=== PATIENT | male | born 1985 | race Hispanic/Latino ===

== ENCOUNTER 2016-08-31 13:32 | Emergency (ER) | payer MEDICAID, OTHER ==
[2016-08-31 14:01] VITALS: BP 121/71; PULSE 77; RESP 20; TEMP 98; O2SAT 100
--- NOTE | 2016-08-31 14:37 | C.PDOC ---
History Of Present Illness 31 year old male presents to the emergency room for a medication refil of Neurontin and Wellbutrin. Patient notes he was in a drug program and was released with a few days of medications. Patient doesn't have a psychiatrist right now. Patient went to [facility], but was told he couldn't see a psychiatrist until next month. Patient denies any SI/HI, hallucinations, fever, or any other complaints. Time Seen by Provider: 08/31/16 14:06 Chief Complaint (Nursing): Med Refill History Per: Patient History/Exam Limitations: no limitations Onset/Duration Of Symptoms: Days (Few days) Current Symptoms Are (Timing): Still Present Severity: Mild Recent travel outside of the [place]: No Past Medical History Reviewed: Historical Data, Nursing Documentation, Vital Signs Vital Signs: Last Vital Signs Temp 98 F 08/31/16 13:58 Pulse 77 08/31/16 13:58 Resp 20 08/31/16 13:58 BP 121/71 08/31/16 13:58 Pulse Ox 100 08/31/16 15:37 - Medical History PMH: Asthma Surgical History: Hernia Repair (b/l inguinal in 1988) Family History: States: Unknown Family Hx - Social History Hx Tobacco Use: Yes Hx Alcohol Use: Yes Hx Substance Use: Yes - Immunization History Hx Tetanus Toxoid Vaccination: Yes (in the last 2 yrs) Hx Influenza Vaccination: No Hx Pneumococcal Vaccination: No Review Of Systems Except As Marked, All Systems Reviewed And Found Negative. Constitutional: Positive for: Other (Medication refill). Negative for: Fever, Chills Gastrointestinal: Negative for: Nausea, Vomiting, Diarrhea Psych: Negative for: Suicidal ideation Physical Exam - Physical Exam Appears: Non-toxic, No Acute Distress Skin: Warm, Dry, No Rash Head: Atraumatic, Normacephalic Eye(s): bilateral: Normal Inspection Nose: Normal Oral Mucosa: Moist Chest: Symmetrical Cardiovascular: Rhythm Regular Respiratory: Normal Breath Sounds, No Rales, No Rhonchi, No Wheezing Extremity: Normal ROM, No Tenderness Neurological/Psych: Oriented x3, Normal Speech, Normal Cognition Gait: Steady ED Course And Treatment O2 Sat by Pulse Oximetry: 100 Progress Note: Patient was given outpatient referrals by elevator worker and instructed to follow up as scheduled. Case idsucssed with jd Arteaga plan and treatment. Disposition - Disposition Disposition: HOME/ ROUTINE Disposition Time: 14:37 Condition: STABLE Additional Instructions: Follow up with the [facility] as scheduled. Return to ER if symptoms persist or worsen. Prescriptions: buPROPion XL [Wellbutrin] 150 mg PO DAILY #15 t24 Gabapentin [Neurontin] 300 mg PO TID #42 cap Instructions: Depression (ED) - Clinical Impression Clinical Impression: Medication refill - Scribe Statement The provider has reviewed the documentation as recorded by the Scribliam Dumont All medical record entries made by the Suriibliam were at my direction and personally dictated by me. I have reviewed the chart and agree that the record accurately reflects my personal performance of the history, physical exam, medical decision making, and the department course for this patient. I have also personally directed, reviewed, and agree with the discharge instructions and disposition.
== END 2016-08-31 15:06 | disposition home or self-care (01) ==
LOC: C.ER 13:32
DX: Z76.0 Encounter for issue of repeat prescription (principal)

== ENCOUNTER 2018-01-24 07:49 | Inpatient (IN) | payer MEDICAID, OTHER ==
[2018-01-24 08:37] LABS: BASO % 0.7 % (0.0-2.0); EOS # 0.2 K/uL (0.0-0.7); EOS % 2.6 % (0.0-4.0); HEMOGLOBIN 15.4 g/dL (12.0-18.0); LYMPH # 2.6 K/uL (1.0-4.3); LYMPH % 34.8 % (20.0-40.0); MEAN CELL VOLUME 87.6 fL (80.0-94.0); MEAN CORPUSCULAR HEMOGLOBIN 30.4 pg (27.0-31.0); MEAN CORPUSCULAR HGB CONC 34.7 g/dL (33.0-37.0); MEAN PLATELET VOLUME 7.7 fL (7.2-11.7); MONO # 0.9 K/uL (0.0-0.8); MONO % 11.7 % (0.0-10.0); NEUT # 3.7 K/uL (1.8-7.0); NEUT % 50.2 % (50.0-75.0); NRBC % 0.1 % (0.0-2.0); RBC 5.05 Mil/uL (4.40-5.90); RED CELL DISTRIBUTION WIDTH 13.5 % (11.5-14.5); WHITE BLOOD COUNT 7.4 K/uL (4.8-10.8)
[2018-01-24 08:46] LABS: SQUAMOUS EPITHIAL < 1 /hpf (0-5); URINE BILIRUBIN NEGATIVE (NEGATIVE); URINE BLOOD NEGATIVE (NEGATIVE); URINE CLARITY Clear (Clear); URINE COLOR Yellow (YELLOW); URINE GLUCOSE (UA) NORMAL (Normal); URINE LEUKOCYTE ESTERASE NEG Leu/uL (Negative); URINE PROTEIN NEGATIVE (NEGATIVE)
[2018-01-24 08:49] LABS: ALB/GLOB RATIO 1.6 (1.0-2.1); ALBUMIN 4.2 g/dL (3.5-5.0); ALT/SGPT 28 U/L (21-72); AST/SGOT 26 U/L (17-59); BLOOD UREA NITROGEN 14 mg/dL (9-20); CALCIUM 9.5 mg/dl (8.6-10.4); GFR NON-AFRICAN AMERICAN > 60
[2018-01-24 09:01] LABS: BARBITURATES, UR NEGATIVE (NEGATIVE); BENZODIAZEPINES, UR NEGATIVE (NEGATIVE); OPIATES, UR NEGATIVE (NEGATIVE); PHENCYCLIDINE, UR NEGATIVE (NEGATIVE)
--- NOTE | 2018-01-24 13:34 | C.PDOC ---
History Of Present Illness 32-year-old male, comes in with c/o feeling depressed and suicidal with no plan. Patient denies HI, no physical complaints at this time. Patient was recently released from incarceration, has a Hx of bipolar disorder and is non compliant with medication. Time Seen by Provider: 01/24/18 08:08 Chief Complaint (Nursing): Psychiatric Evaluation History Per: Patient History/Exam Limitations: no limitations Current Symptoms Are (Timing): Still Present Past Medical History Reviewed: Historical Data, Nursing Documentation, Vital Signs Vital Signs: Last Vital Signs Temp 98.1 F 01/24/18 11:01 Pulse 58 L 01/24/18 11:01 Resp 18 01/24/18 11:01 BP 129/83 01/24/18 11:01 Pulse Ox 95 01/24/18 11:01 - Medical History PMH: Anxiety, Asthma, Bipolar Disorder, Depression Denies: Diabetes, Hepatitis, HIV, HTN, Seizures, Sexually Transmitted Disease Surgical History: Hernia Repair (b/l inguinal in 1988) Family History: States: No Known Family Hx - Social History Hx Tobacco Use: Yes Hx Alcohol Use: Yes (denies) Hx Substance Use: Yes (marijuana) - Immunization History Hx Tetanus Toxoid Vaccination: Yes (in the last 2 yrs) Hx Influenza Vaccination: No Hx Pneumococcal Vaccination: No Review Of Systems Except As Marked, All Systems Reviewed And Found Negative. Cardiovascular: Negative for: Chest Pain Respiratory: Negative for: Shortness of Breath Gastrointestinal: Negative for: Vomiting Psych: Positive for: Depression, Suicidal ideation. Negative for: Psychosis, Withdrawal Physical Exam - Physical Exam Appears: Non-toxic, No Acute Distress Skin: Warm, Dry, No Diaphoretic, No Rash, No Jaundice Head: Atraumatic Eye(s): bilateral: Normal Inspection, PERRL, EOMI Nose: Normal Oral Mucosa: Moist Lips: Normal Appearing Neck: Normal ROM Cardiovascular: Rhythm Regular, No Murmur Respiratory: Normal Breath Sounds, No Accessory Muscle Use Gastrointestinal/Abdominal: Soft, No Tenderness Back: Normal Inspection Extremity: Normal ROM, No Deformity Neurological/Psych: Oriented x3, Normal Speech ED Course And Treatment - Laboratory Results Result Diagrams: 01/24/18 08:30 01/24/18 08:30 O2 Sat by Pulse Oximetry: 95 Pulse Ox Interpretation: Normal (RA) Disposition - Disposition Disposition: HOSPITALIZED Disposition Time: 10:20 Condition: STABLE - Clinical Impression Clinical Impression: Major depressive disorder - Scribe Statement The provider has reviewed the documentation as recorded by the Scribe (Salty Andrade) Provider Attestation: All medical record entries made by the Scribe were at my direction and personally dictated by me. I have reviewed the chart and agree that the record accurately reflects my personal performance of the history, physical exam, medical decision making, and the department course for this patient. I have also personally directed, reviewed, and agree with the discharge instructions and disposition.
[2018-01-25 06:16] VITALS: O2SAT 99
--- NOTE | 2018-01-25 10:16 | PCM.PSYCH ---
Initial Psychiatric Evaluation - Initial Psychiatric Evaluation Type of Admission: Voluntary Legal Status: Capacity Chief Complaint (in patient's own words): "I feel depressed" History of Present Illness and Precipitating Events: Patient is a 32-year-old male, single with no children. He lives with his father in [place]. He is currently unemployed and supports himself with welfare. Patient is here for depression. Patient states that he has been feeling overwhelmed and depressed in the last 5 days. He has a history of bipolar disorder, depression, and anxiety that was diagnosed 5 years ago. He states that he normally takes his medications regularly but he stopped taking them 2 weeks ago because he did not have any left. Patient was incarcerated for 3 years and released 3 weeks ago. He was getting his medications from the clinic in the group home. He denies having a psychiatrist or therapist. Patient reports that in the past few weeks, he has sleep problems and his appetite is decreased. He currently denies having any suicidal or homicidal ideation but he has been having suicidal and homicidal thoughts for a long time. The last time he felt suicidal/homicidal was the last weekend. He attempted suicide 3x in the past. The last attempt was in 2010 that after his grandmother , he tried to strangle himself with a sheet. He denies having any paranoia, visual or auditory hallucinations. Patient states that he smokes and eats marijuana in the last 20 years. He last used it yesterday. He snorts $40 dollars worth cocaine once in a while as it is not his drug of choice. He last used cocaine 4 days ago. Patient denies any other drug or alcohol use. He smokes 1ppd. Patient reports that he has been hospitalized in a psych unit many times before. Psych hx: Bipolar disorder, depression, anxiety Med hx: Asthma Family hx: Both mother and father abuse alcohol and drug. Current Medications: Active Medications Generic Name Dose Route Start Last Admin Trade Name Freq PRN Reason Stop Dose Admin Pneumococcal Polyvalent Vaccine 0.5 ml 01/26/18 10:00 Pneumovax 23 Vaccine IM 01/26/18 10:01 .ONCE ONE Past Psychiatric History - Past Psychiatric History Previous Treatment History: None Pertinent Medical Hx (Current Medical&Sleep Prob, Allergies): Allergies Allergy/AdvReac Type Severity Reaction Status Date / Time No Known Allergies Allergy Verified 08/31/16 14:02 No Known Home Med 01/24/18 Review of Systems - Review of Systems All systems: reviewed and no additional remarkable complaints except - Psychiatric Psychiatric: Anxiety, Irritability, Suicidal Ideation Mental Status Examination - Personal Presentation Personal Presentation: Looks stated age - Affect Affect: Constricted, Depressed - Motor Activity Motor Activity: Calm - Reliability in Providing Information Reliability in Providing Information: Good - Speech Speech: Organized - Mood Mood: Depressed, Anxious - Formal Thought Process Formal Thought Process: No Impairment - Obsessions/Compulsions Obsessions: No Compulsions: No - Cognitive Functions Orientation: Person, Place, Situation, Time Sensorium: Alert Attention/Concentration: Attentive Abstract Thinking: [place] Estimate of Intelligence: Below average Judgement: Imparied, as evidence by: Poor judgement, Imparied, as evidence by: Lack of insight into illness - Risk Risk: Diminished functioning - Limitations Limitations: Living alone DSM 5 DX - DSM 5 DSM 5 Diagnosis: Bipolar disorder mixed severe without psychotic features Cocaine use disorder severe - Recommended/Plan of Treatment Treatment Recommendations and Plan of Treatment: Bipolar disorder mixed severe without psychotic features Cocaine use disorder severe -CBT -Psychotherapy -Supportive therapy, group therapy, individual therapy -Atarax 25 mg PO Q6 prn -Depaote 250 mg pO BID -Neurontin 300 mg p TID
[2018-01-25] MEDS: Divalproex 250 mg DR Tab PO SCH (18:08)
[2018-01-26 06:33] VITALS: RESP 19; TEMP 97.5
[2018-01-26] MEDS: Divalproex 250 mg DR Tab PO SCH (09:50)
[2018-01-26] MEDS ORDERED: Pneumococcal 23-Valent Vaccine IM ONE (10:00)
--- NOTE | 2018-01-26 11:18 | PCM.PYCHPN ---
Psychiatric Progress Note - Psychiatric Progress Note Patient seen today, length of contact: 15 min Patient Chief Complaint: "I feel depressed" Medication Change: Yes Medical Record Reviewed: Yes Mental Status Examination - Cognitive Function Orientation: Person, Place, Situation, Time Memory: Intact Attention: WNL Concentration: Poor Association: WNL Fund of Knowledge: Poor - Mood Mood: Depressed, Anxious - Affect Affect: Constricted, Depressed - Formal Thought Process Formal Thought Process: No Impairment - Suicidal Ideation Suicidal Ideation: No - Homicidal Ideation Homicidal Ideation: No Goal/Treatment Plan - Goal/Treatment Plan Need for Continued Stay: Severe depression anxiety, Severe functional impairment Progress Toward Problem(s) and Goals/Treatment Plan: Bipolar disorder mixed severe without psychotic features Cocaine use disorder severe -CBT -Psychotherapy -Supportive therapy, group therapy, individual therapy -Atarax 25 mg PO Q6 prn -Depaote 250 mg pO BID -Neurontin 300 mg p TID
--- NOTE | 2018-01-26 13:47 | PCM.PYCHDC ---
Mental Status Examination - Mental Status Examination Orientation: Person, Place, Situation, Time Memory: Intact Mood: Neutral Affect: Constricted Speech: Soft Attention: WNL Concentration: WNL Association: WNL Fund of Knowledge: WNL Formal Thought Process: No Impairment Description of patient's judgement and insight: partially impaired Psychotic Thoughts and Behaviors: denies any AVH Suicidal Ideation: No Current Homicidal Ideation?: No Discharge Summary - Discharge Note Reason for Hospitalization: Patient is a 32-year-old male, single with no children. He lives with his father in [place]. He is currently unemployed and supports himself with welfare. Patient is here for depression. Patient states that he has been feeling overwhelmed and depressed in the last 5 days. He has a history of bipolar disorder, depression, and anxiety that was diagnosed 5 years ago. He states that he normally takes his medications regularly but he stopped taking them 2 weeks ago because he did not have any left. Patient was incarcerated for 3 years and released 3 weeks ago. He [facility] getting [facility]. He denies having a psychiatrist or therapist. Patient reports that in the past few weeks, he has sleep problems and his appetite is decreased. He currently denies having any suicidal or homicidal ideation but he has been having suicidal and homicidal thoughts for a long time. The last time he felt suicidal/homicidal was the last weekend. He attempted suicide 3x in the past. The last attempt was in 2010 that after his grandmother , he tried to strangle himself with a sheet. He denies having any paranoia, visual or auditory hallucinations. Patient states that he smokes and eats marijuana in the last 20 years. He last used it yesterday. He snorts $40 dollars worth cocaine once in a while as it is not his drug of choice. He last used cocaine 4 days ago. Patient denies any other drug or alcohol use. He smokes 1ppd. Patient reports that he has been hospitalized in a psych unit many times before. Psych hx: Bipolar disorder, depression, anxiety Med hx: Asthma Family hx: Both mother and father abuse alcohol and drug. Consultations:: List each consultation separately and include: 1. Reason for request. 2. Findings. 3. Follow-up Summary of Hospital Course include:: 1. Description of specific treatment plan utilized for patients during their course of treatmen. 2. Summarize the time- course for resolution of acute symptoms and/or regressed behaviors. 3. Describe issues identified and worked on during hospitalization. 4. Describe medication utilized. 5. Describe medical problems identified and treated. 6. Reassessment of suicide risk Summary of Hospital Course: Patient is a 32-year-old male, single with no children. He lives with his father in [place]. He is currently unemployed and supports himself with welfare. Patient is here for depression. Patient states that he has been feeling overwhelmed and depressed in the last 5 days. He has a history of bipolar disorder, depression, and anxiety that was diagnosed 5 years ago. He states that he normally takes his medications regularly but he stopped taking them 2 weeks ago because he did not have any left. Patient was incarcerated for 3 years and released 3 weeks ago. He was getting his medications from the clinic [facility]. He denies having a psychiatrist or therapist. Patient reports that in the past few weeks, he has sleep problems and his appetite is decreased. He currently denies having any suicidal or homicidal ideation but he has been having suicidal and homicidal thoughts for a long time. The last time he felt suicidal/homicidal was the last weekend. He attempted suicide 3x in the past. The last attempt was in 2010 that after his grandmother , he tried to strangle himself with a sheet. He denies having any paranoia, visual or auditory hallucinations. Patient states that he smokes and eats marijuana in the last 20 years. He last used it yesterday. He snorts $40 dollars worth cocaine once in a while as it is not his drug of choice. He last used cocaine 4 days ago. Patient denies any other drug or alcohol use. He smokes 1ppd. Patient reports that he has been hospitalized in a psych unit many times before. Psych hx: Bipolar disorder, depression, anxiety Med hx: Asthma Family hx: Both mother and father abuse alcohol and drug. - Final Diagnosis (DSM 5) Condition upon Discharge: STABLE Disposition: HOME/ ROUTINE Follow-up Treatment Plan: Bipolar disorder mixed severe without psychotic features Cocaine use disorder severe -CBT -Psychotherapy -Supportive therapy, group therapy, individual therapy -Atarax 25 mg PO Q6 prn -Depaote 250 mg pO BID -Neurontin 300 mg p TID
[2018-01-26 14:02] VITALS: BP 123/67; PULSE 79
== END 2018-01-26 14:17 | disposition home or self-care (01) | DRG 430 ==
LOC: C.ER 07:49 → C.9E 10:54 → C.5E 11:29
PROVIDERS: ADMIT Psychiatry & Neurology Psychiatry; ATTEND Psychiatry & Neurology Psychiatry
PROC: GZ3ZZZZ Medication Management (ICD-10-PCS; principal; 2018-01-24)
PROC: GZHZZZZ Group Psychotherapy (ICD-10-PCS; 2018-01-24)
PROC: GZ56ZZZ Individual Psychotherapy, Supportive (ICD-10-PCS; 2018-01-24)
DX: F31.63 Bipolar disorder, current episode mixed, severe, without psychotic features (principal); F14.20 Cocaine dependence, uncomplicated; F12.90 Cannabis use, unspecified, uncomplicated; R45.851 Suicidal ideations; R45.850 Homicidal ideations; F17.210 Nicotine dependence, cigarettes, uncomplicated; J45.909 Unspecified asthma, uncomplicated; Z91.14 Patient's other noncompliance with medication regimen